=== PATIENT | female | born 1960 | race Caucasian/White ===

== ENCOUNTER 2020-05-21 23:43 | Emergency (ER) | payer OTHER, SELFPAY ==
[2020-05-21 23:57] VITALS: BP 134/86; PULSE 84; RESP 18; TEMP 36.6; O2SAT 92; BMI 31.1
[2020-05-22 00:32] LABS: Basophils % 0.3 %; Eosinophils % 0.3 %; Hematocrit 42.5 % (37.0-47.0); Hemoglobin 13.8 g/dL (11.5-15.3); Lymphocytes # 1.8 10^3/uL (0.8-4.8); Lymphocytes % 17.7 %; Mean Corpuscular HGB Conc 32.5 g/dL (30.0-36.0); Mean Corpuscular Hemoglobin 31.2 pg (28.0-34.0); Mean Corpuscular Volume 96.2 fL (81-99); Monocytes # 0.5 10^3/uL (0.2-0.9); Monocytes % 5.1 %; Neutrophils # 7.9 10^3/uL (1.8-7.7); Neutrophils % 76.5 %; Nucleated Red Blood Cells % 0 %; Platelet Count 348 10^3/cmm (130-400); Red Blood Count 4.42 10^6/uL (4.1-5.3); White Blood Count 10.3 10^3/uL (4.0-10.0)
[2020-05-22 00:57] LABS: Alanine Aminotransferase 18 U/L (0-33); Albumin Level 4.6 g/dL (3.5-5.2); Alkaline Phosphatase 72 IU/L (35-105); Anion Gap 18.2 (5-19); Aspartate Amino Transferase 22 U/L (0-32); Blood Urea Nitrogen 18 mg/dL (6-20); Calcium 9.7 mg/dL (8.5-10.5); Carbon Dioxide 22 mmol/L (22-29); Chloride 100 mmol/L (98-107); Globulin 3.5 g/dL (1.3-4.6); Glomerular Filtration Rate 73.9 mL/min (90-130); Glucose 123 mg/dL (65-115); Lipase 26 U/L (13-60); Osmolality Calculated 280 mOsm/kg (285-295); Potassium 4.2 mmol/L (3.5-5.1); Sodium 136 mmol/L (136-145); Total Bilirubin 0.3 mg/dL (0.15-1.2); Total Protein 8.1 g/dL (6.6-8.7)
--- NOTE | 2020-05-22 01:24 | W.ED.ABDPA2 ---
HPI - Abdominal Pain General: Chief Complaint: Abdominal Pain Stated Complaint: abd pain Time Seen by Provider: 05/22/20 01:24 Source: patient Mode of arrival: ambulatory Limitations: no limitations History of Present Illness: HPI narrative: Patient comes in today for complaints of abdominal pain after eating a hamburger and fries this afternoon. Patient states that the pain has improved some since arriving to the emergency department. Patient appears well. Patient appears in no acute distress. MD elicited complaint: abdominal pain Associated Symptoms: Reports nausea Review of Systems General: Reports: 10 or more systems reviewed and unremarkable except in HPI and below GI: Reports: abdominal pain and nausea Physical Exam Const: COMMON NORMALS: no acute distress and patient oriented x3 GENERAL APPEARANCE: cooperative HENMT: COMMON NORMALS: normocephalic and Normal external nose present HEAD & SCALP: normal to inspection and normocephalic NOSE: Normal external nose present MOUTH: Normal oral and palatal mucosa present THROAT: posterior oropharynx normal Eye: GENERAL EYE: appearance normal, both eyes and all related structures Neck/C-Spine: COMMON NORMALS: full ROM Lymph: LYMPHATIC: no lymphadenopathy noted Chest: COMMONS NORMALS: normal inspection of the chest Resp: COMMON NORMALS: normal respiratory effort EFFORT & INSPECTION: Yes able to speak in complete sentences Cardio: COMMON NORMALS: regular rate and regular rhythm RATE: regular rate RHYTHM: regular rhythm GI: COMMON NORMALS: Soft to palpation PALPATION: Yes Soft to palpation and Yes Tenderness to palpation present (GI) Details: RUQ : COMMON NORMALS: Yes no CVA tenderness BLADDER/KIDNEY EXAM: Yes no CVA tenderness Back/Pelvis: COMMON NORMALS: no CVA tenderness and thoracic and lumbar spine normal to inspection Extremity: COMMON NORMALS: normal to inspection Neuro: COMMON NORMALS: patient oriented x3 and moves all extremities Psych: COMMON NORMALS: mental status grossly normal and cooperative Skin: COMMON NORMALS: no rashes or lesions noted GENERAL SKIN EXAM: no rashes or lesions noted Course Vital Signs: Vital signs: Vital Signs Temperature 97.9 F 05/21/20 23:57 Pulse Rate 84 05/22/20 04:04 Respiratory Rate 17 05/22/20 04:04 Blood Pressure 135/77 05/22/20 04:04 Pulse Oximetry 97 05/22/20 04:04 MDM - Abdominal Pain MDM Narrative: Medical decision making narrative: Patient comes in with some severe pain to the abdomen that started after she ate. Patient appears well. Exam notes abdominal tenderness to palpation in the midepigastric to right quadrant. Vital signs were normal. No fever was noted. Differential diagnosis includes cholecystitis, gastritis, gastroenteritis, pancreatitis, appendicitis. Laboratory values noted a white count of 10,000, blood glucose of 123, urinalysis that was normal. CT scan of the abdomen pelvis noted epiploic appendagitis and enteritis. Reviewed exam with patient recommendations for treatment with pain control and fluids. Recommend light diet and follow-up with primary care in 1 week for recheck. Patient reports understanding with need for follow-up as needed. Lab Data: Labs: Lab Results 05/22/20 05/22/20 05/22/20 Range/Units 00:16 00:16 02:40 WBC 10.3 H (4.0-10.0) 10^3/ uL RBC 4.42 (4.1-5.3) 10^6/u L Hgb 13.8 (11.5-15.3) g/dL Hct 42.5 (37.0-47.0) % MCV 96.2 (81-99) fL MCH 31.2 (28.0-34.0) pg MCHC 32.5 (30.0-36.0) g/dL RDW 12.0 L (12.1-15.1) % Plt Count 348 (130-400) 10^3/c mm MPV 9.0 (7.4-10.4) fL Neut % (Auto) 76.5 % Lymph % (Auto) 17.7 % [place] % (Auto) 5.1 % Eos % (Auto) 0.3 % Baso % (Auto) 0.3 % Neut # (Auto) 7.9 H (1.8-7.7) 10^3/u L Lymph # (Auto) 1.8 (0.8-4.8) 10^3/u L [place] # (Auto) 0.5 (0.2-0.9) 10^3/u L Eos # (Auto) 0.0 (0.0-0.8) 10^3/u L Baso # (Auto) 0.0 (0.0-0.1) 10^3/u L Nucleated RBC % (a uto) 0 % Nucleated RBCs # 0.0 /100WBC Sodium 136 (136-145) mmol/L Potassium 4.2 (3.5-5.1) mmol/L Chloride 100 (98-107) mmol/L Carbon Dioxide 22 (22-29) mmol/L Anion Gap 18.2 (5-19) BUN 18 (6-20) mg/dL Creatinine 0.8 (0.5-0.9) mg/dL GFR Calculation 73.9 L (90-130) mL/min Glucose 123 H (65-115) mg/dL Calculated Osmolal ity 280 L (285-295) mOsm/k g Calcium 9.7 (8.5-10.5) mg/dL Total Bilirubin 0.3 (0.15-1.2) mg/dL AST 22 (0-32) U/L ALT 18 (0-33) U/L Alkaline Phosphata se 72 (35-105) IU/L Total Protein 8.1 (6.6-8.7) g/dL Albumin 4.6 (3.5-5.2) g/dL Globulin 3.5 (1.3-4.6) g/dL Lipase 26 (13-60) U/L Urine Color Yellow (Yellow) Urine Appearance Clear (CLEAR) Urine pH 5 (5-7) Ur Specific Gravit y 1.025 (1.005-1.030) Urine Protein Neg (Negative) Urine Glucose (UA) Norm (Normal) Urine Ketones Negative (Negative) Urine Blood Neg (Negative) Urine Nitrate Negative (Negative) Urine Bilirubin Neg (NEGATIVE) Urine Urobilinogen Norm (Negative) mg/dL Ur Leukocyte [place] ase Trace H (Negative) Urine RBC Rare (0-2) /hpf Urine WBC Rare (0-5) /hpf Ur Squamous Epith Cells 0-4 H (0-5) Amorphous Sediment Not Reportable Urine Bacteria Trace (NONE) Urine Mucus 2+ Discharge Plan Discharge Patient Disposition: Home, Self-Care Clinical Impression: Epiploic appendagitis, Enteritis Abdominal pain Qualifiers: Abdominal location: unspecified location Qualified Code(s): R10.9 - Unspecified abdominal pain Condition: Stable Prescriptions: New hydrocodone-acetaminophen 5-325 mg tablet 1 tab PO Q6H PRN (Reason: pain, severe) Qty: 7 RF: 0 omeprazole 40 mg capsule,delayed release(DR/EC) 40 mg PO DAILY 30 Days Qty: 30 RF: 0 Discharge Orders: Discharge Order (Routine); Ordered 05/22/20 Ordered By: Jorge Jackson Referrals: Karly Bradley FNP [Primary Care Provider] - Discharge Diet: Advance as tolerated Discharge Activity: Increase activity as tolerated Patient Instructions: Cholecystitis (ED), Abdominal Pain (ED) Activity Restrictions/Additional Instructions: Drink plenty of fluids. Eat a light diet for the next couple days. Activity as tolerated. Return to the ER for high fever, worsening symptoms, or blood in stool or vomit. Follow-up with primary care as needed otherwise. 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
--- NOTE | 2020-05-22 01:33 | CTR_ITS ---
PROCEDURE INFORMATION: Exam: CT Abdomen And Pelvis With Contrast Exam date and time: 05/22/2020 2:06 AM Age: 59 years old Clinical indication: Abdominal pain; Generalized; Prior surgery; Surgery type: Btl; Additional info: Abd pain TECHNIQUE: Imaging protocol: Computed tomography of the abdomen and pelvis with intravenous contrast. Radiation optimization: All CT scans at this facility use at least one of these dose optimization techniques: automated exposure control; mA and/or kV adjustment per patient size (includes targeted exams where dose is matched to clinical indication); or iterative reconstruction. Contrast material: OMNI 300; Contrast volume: 95 ml; Contrast route: INTRAVENOUS (IV); COMPARISON: [facility] Transvaginal 03/19/2019 3:03 PM RADIATION DOSE METRICS: Total DLP (mGy-cm): 1110 FINDINGS: Lungs: There is subsegmental atelectasis in the lung bases. Liver: The liver is normal. Gallbladder and bile ducts: The gallbladder is normal. There is no biliary dilation. Pancreas: The pancreas is unremarkable. Spleen: The spleen is unremarkable. Adrenals: The adrenal glands are unremarkable. Kidneys and ureters: The kidneys are unremarkable. No hydronephrosis or stones. No ureteral dilation. Stomach and bowel: The stomach is unremarkable. The proximal small bowel is unremarkable. there is fluid filling and mucosal hyperenhancement of nondilated distal small bowel loops in the right lower quadrant. There is mild associated interloop edema in the mesentery. There is focal edema with central fat attenuation along the sigmoid colon (see axial series 2, image 70). There is mild sigmoid colonic diverticulosis without evidence of diverticulitis. Appendix: The appendix is not definitively identified, although there are no secondary signs of appendicitis. Intraperitoneal space: Small volume pelvic free fluid. Vasculature: There is mild aortic atherosclerotic disease. The portal, splenic and superior mesenteric veins are patent. Lymph nodes: There is no lymphadenopathy in the retroperitoneum, mesentery, pelvis or inguinal regions. Bladder: The urinary bladder is unremarkable. Reproductive: The uterus is unremarkable. There is no adnexal mass or large cyst. Bones/joints: There is mild degenerative disease in the lumbar spine. The pelvis and hips are intact. Soft tissues: The abdominal wall is intact. CT/CT abdomen pelvis w con* [id number] IMPRESSION: 1. Probable enteritis involving the distal small bowel. No sign of obstruction. 2. Possible epiploic appendagitis of the sigmoid. 3. Small volume pelvic free fluid is likely physiologic. Radiation Dose CTDIVOL = (mGy): DLP = 1110 (mGy-cm)
[2020-05-22 02:11] VITALS: BP 112/83; PULSE 75; RESP 16; O2SAT 97
[2020-05-22] MEDS: pantoprazole 40 mg SDV IVP (02:18)
[2020-05-22 02:40] VITALS: BP 116/72; PULSE 70; RESP 16; O2SAT 96
[2020-05-22] MEDS: iohexol 300 mg/mL 100 mL Btl IV (02:49)
[2020-05-22 03:30] LABS: Add Urine Microscopic? YES; Bilirubin Urine Neg (NEGATIVE); Blood Urine Neg (Negative); Glucose Urine UA Norm (Normal); Ketones Urine Negative (Negative); Leukocyte Esterase Urine Trace (Negative); Nitrate Urine Negative (Negative); Protein Urine Neg (Negative); Specific Gravity, Urine 1.025 (1.005-1.030); Urine Appearance Clear (CLEAR); Urine Color Yellow (Yellow); Urobilinogen Urine Norm (Negative); pH Urine 5 (5-7)
[2020-05-22 03:35] LABS: Add Urine Culture? No; Bacteria Urine TRACE; Mucus Urine 2+; RBC Urine RARE /hpf (0-2); Squamous Epithelial Cell Urine 0-4 (0-5); WBC Urine RARE /hpf (0-5)
[2020-05-22 04:04] VITALS: BP 135/77; PULSE 84; RESP 17; O2SAT 97
[2020-05-22 04:36] VITALS: BP 119/78; PULSE 82; RESP 16; O2SAT 96
[2020-05-22 04:42] VITALS: BP 133/85; PULSE 81; RESP 16; O2SAT 97
== END 2020-05-22 04:45 | disposition home or self-care (01) ==
PROVIDERS: Emergency Medicine; Emergency Provider Nurse Practitioner Family; PCP Nurse Practitioner Family
DX: K63.89 Other specified diseases of intestine (principal); K52.9 Noninfective gastroenteritis and colitis, unspecified
CPT/HCPCS: 12345; 74177; 80053; 81001; 81003; 83690; 85025; 96374; 96375; 99283; C9113; Q9967

== ENCOUNTER 2020-07-17 06:52 | Outpatient (CLI) | payer OTHER, SELFPAY ==
--- NOTE | 2020-07-17 07:03 | NM_ITS ---
WS: [id number] NUCLEAR MEDICINE HIDA SCAN CLINICAL INFORMATION: RUQ PAIN TECHNIQUE: Following intravenous administration of 7.9 mCi of technetium 99m mebrofenin, images of th e abdomen were obtained over the course of 60 minutes. Next, gallbladder ejection fraction was determ ined by obtaining preprandial and one-hour postprandial images of the gallbladder following oral hiram stion of Ensure. COMPARISON: None. FINDINGS: Normal hepatic uptake at 5 minutes. Gallbladder is visualized by 20 minutes. Normal common bile duct. No evidence of acute cholecystitis. No evidence of choledocholithiasis. Gallbladder ejection fraction 85% within normal limits. NM/NM hepatobiliary w phar* [id number] IMPRESSION: 1. No evidence of acute or chronic cholecystitis. 2. Gallbladder ejection fraction 85% within normal limits.
== END 2020-07-17 06:53 | disposition home or self-care (01) ==
PROVIDERS: PCP Nurse Practitioner Family; Visit Provider Nurse Practitioner Family
DX: R10.11 Right upper quadrant pain (principal)
CPT/HCPCS: 78227; A9537

== ENCOUNTER → 2021-06-25 15:49 | Outpatient (BNVA) | payer OTHER, SELFPAY | PROVIDERS: PCP Nurse Practitioner Family; Visit Provider Nurse Practitioner Family | DX: Z20.822 Contact with and (suspected) exposure to COVID-19 (principal) | CPT/HCPCS: 87635 ==

== ENCOUNTER 2021-08-20 07:09 | Day surgery (SDC) | payer OTHER, SELFPAY ==
[2021-08-16 13:07] VITALS: BMI 28.5
--- NOTE | 2021-08-20 07:25 | ANES.PREANE2 ---
Pre-Anesthetic Assessment Pre-Anesthetic Assessment: Height/Weight: Height 1.57 m Weight 70.76 kg Preop Diagnosis: screening Proposed Procedure: Operation Date: 08/20/21 08:45 Proposed Procedures p Colonoscopy Z12.11 Z01.818(Not Applicable) - Rj Ambriz MD Familial anesthetic complications: none Was Beta June taken within 24 hours: N/A Was Clonidine taken within 24 hours: N/A Last intake: > 8 hrs Social: Social History: Tobacco and No alcohol Exam: Pre-Anes Outpt Exam: alert, oriented x 3, clear to auscultation bilaterally and regular rate & rhythm Airway: Cervical ROM: WNL MP: 2 Dentition: Chipped CV/HEM: CV/HEM: HTN Anesthetic Plan: ASA status: 2 Anesthesia: MAC Risk of > 500 ml blood loss (7ml/kg in children): No PFSH Anesthesia PFSH: Social History (Updated 06/25/21 @ 14:59 by Helga Amezquita NP) Smoking and tobacco status: current every day smoker cigarettes Alcohol intake: never Data Anesthesia Cardiac Studies: No Data to Display
[2021-08-20 07:49] VITALS: BP 127/57; PULSE 55; RESP 18; TEMP 36.3; O2SAT 97
[2021-08-20] MEDS: sodium chloride 0.9% 1,000 ML 30 ML IV (07:59)
--- NOTE | 2021-08-20 09:13 | P.HP_ITS ---
Providers/Chief Complaint Primary Care Provider: RICHARD Spain Chief Complaint: colonoscopy History of Present Illness Letitia Gaspar is a 61 year old female Review of Systems General: Reports: 10 or more systems reviewed and unremarkable except in HPI and below Const: Denies: fever(s) Card: Denies: chest pain or irregular heart rhythm Resp: Denies: dyspnea Medications/Allergies Home Medications Medication Instructions Recorded Confirmed Last Taken Type lisinopril 5 mg tablet 5 mg PO DAILY 06/25/21 08/20/21 08/19/21 History Allergies Allergy/AdvReac Type Severity Reaction Status Date / Time codeine Allergy ADR-Nausea Verified 06/25/21 14:59 PFSH PFSH: Social History Smoking and tobacco status: current every day smoker cigarettes Alcohol intake: never Vital Signs Vitals Signs: Last Vital Signs Temp 97.3 F L 08/20/21 07:49 Pulse 55 L 08/20/21 07:49 Resp 18 08/20/21 07:49 BP 127/57 08/20/21 07:49 Pulse Ox 97 08/20/21 07:49 Physical Exam Const: COMMON NORMALS: no acute distress and patient oriented x3 GENERAL APPEARANCE: cooperative, comfortable and well developed HENMT: COMMON NORMALS: normocephalic and moist oral mucous membranes HEAD & SCALP: normocephalic Chest: COMMONS NORMALS: normal inspection of the chest Resp: COMMON NORMALS: normal respiratory effort and clear to auscultation bilaterally AUSCULTATION: clear to auscultation bilaterally Cardio: COMMON NORMALS: regular rate, regular rhythm, No gallops present (Cardio), No murmurs present (Cardio) and No rub (Cardio) RATE: regular rate RHYTHM: regular rhythm Extremity: COMMON NORMALS: normal to inspection Neuro: COMMON NORMALS: patient oriented x3 and no focal motor deficits Skin: COMMON NORMALS: no rashes or lesions noted GENERAL SKIN EXAM: no rashes or lesions noted A&P Assessment and plan (1) Encounter for screening colonoscopy: Proceed with colonoscopy as scheduled. 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
[2021-08-20 09:45] VITALS: BP 99/53; PULSE 66; RESP 18; TEMP 36.1; O2SAT 94
[2021-08-20 09:55] VITALS: BP 96/50; PULSE 63; RESP 18; O2SAT 98
--- NOTE | 2021-08-20 12:21 | ANE.PACU2 ---
Inpatient post-anesthesia follow up: Airway intact: Yes Vital signs: Temperature 97.0 F Pulse Rate 63 Respiratory Rate 18 Blood Pressure 96/50 Pulse Oximetry 98 Oxygen Delivery Me thod Room Air Oxygen Flow Rate 3 Fraction of Inspir ed Oxygen Hydration adequate: Yes Nausea and vomiting: No Pain level: 1 Mental status: Baseline
== END 2021-08-20 10:11 | disposition home or self-care (01) ==
PROVIDERS: PCP Nurse Practitioner Family; Visit Provider Family Medicine
PROC: 0DJD8ZZ Inspection of Lower Intestinal Tract, Via Natural or Artificial Opening Endoscopic (ICD-10-PCS; CPT 45378; principal; 2021-08-20 08:45)
DX: Z12.11 Encounter for screening for malignant neoplasm of colon (principal); F17.210 Nicotine dependence, cigarettes, uncomplicated; I10 Essential (primary) hypertension
CPT/HCPCS: 12345; 45378; 96360; 96361; J2704; J7030

== ENCOUNTER → 2023-11-06 09:43 | Outpatient (BNVA) | payer OTHER, SELFPAY | PROVIDERS: Visit Provider Nurse Practitioner Family | DX: R50.9 Fever, unspecified (principal); H66.002 Acute suppurative otitis media without spontaneous rupture of ear drum, left ear; U07.1 COVID-19 | CPT/HCPCS: 87400; 87426 ==

== ENCOUNTER 2023-12-05 07:23 | Emergency (ER) | payer SELFPAY ==
[2023-12-05 07:35] VITALS: BP 181/94; PULSE 84; RESP 18; TEMP 36.8; O2SAT 95; BMI 32.9
--- NOTE | 2023-12-05 07:42 | ECG_ITS ---
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 Measurements Intervals [place] Rate: 57 P: 33 AL: 129 QRS: 40 QRSD: 73 T: 23 QT: 402 QTc: 393 Interpretive Statements SINUS BRADYCARDIA LOW QRS VOLTAGE IN PRECORDIAL LEADS [QRS DEFLECTION < 1.0 mV IN CHEST LEADS] No previous ECG available for comparison Electronically Signed On 12-05-2023 10:10:49 DIAMOND MERCHANT by Bruce Shabazz M.D. [email or web address]
--- NOTE | 2023-12-05 07:43 | ED_ITS ---
HPI - Dizziness 2 General: Chief Complaint: Dizziness Stated Complaint: dizziness Time Seen by Provider: 12/05/23 07:41 Source: patient Mode of arrival: ambulatory History of Present Illness: HPI Narrative: 63-year-old female who presents to the mergency room with dizziness. This morning when she woke up she had dizziness triggered by head movement while she was still in bed when she is remaining still for period of time it resolved. When she got up and began moving around it recurred. It improved again and while I was discussing her history with her at the bedside it recurred again. She denies any chest pain or shortness of breath no head injury. No other deficits noted. MD elicited complaint: dizziness Onset (ago): minute(s) Timing: sudden onset Severity: moderate Description: room spinning Context: change in body position Exacerbating factors: movement/ambulation Relieving factors: remaining still Associated symptoms: Denies change in hearing, chest pain, chills, cough, diaphoresis, ear discharge, ear pressure, fevers/chills, headache(s), malaise, nausea, nasal congestion, palpitations, rash, short of breath, syncope, tinnitus, vomiting or weakness Associated neuro symptoms: Deny confusion, difficulty speaking, dysphagia, diplopia, extremity weakness, facial numbness, facial weakness, gait changes, numbness in extremities or visual changes Review of Systems 2 Const: Denies: fever(s), chills, malaise or diaphoresis ENMT: Denies: ear discharge, change in hearing, tinnitus or nasal congestion Card: Denies: chest pain, palpitations or syncope Resp: Denies: dyspnea GI: Denies: abdominal pain, nausea, vomiting or dysphagia : Denies: dysuria, urinary frequency or urinary urgency Musc: Denies: neck pain or back pain Skin/Breast: Denies: rash Neuro: Denies: headache(s), numbness in extremities or confusion PFSH ED 2 PFSH: Social History Smoking and tobacco/nicotine status: current every day tobacco/nicotine user cigarettes Alcohol intake: never Substance/Drug Use: never Physical Exam 2 Const: COMMON NORMALS: patient oriented x3, no limitations, healthy appearing, alert and well nourished GENERAL APPEARANCE: cooperative and comfortable O RIENTATION/CONSCIOUSNESS: Yes awake, Yes oriented to person, Yes oriented to place and Yes oriented to time HENMT: COMMON NORMALS: normocephalic, atraumatic and hearing grossly normal bilaterally HEAD & SCALP: normocephalic and atraumatic Resp: COMMON NORMALS: normal respiratory effort, No retractions, No use of accessory muscles and clear to auscultation bilaterally AUSCULTATION: clear to auscultation bilaterally Cardio: COMMON NORMALS: regular rate, regular rhythm and No murmurs present (Cardio) RATE: regular rate RHYTHM: regular rhythm GI: COMMON NORMALS: Soft to palpation and No hepatosplenomegaly present A USCULTATION: Yes normoactive bowel sounds PALPATION: Yes Soft to palpation, No Tenderness to palpation present (GI), No Guarding due to palpation present (GI) and Yes No hepatosplenomegaly present Extremity: COMMON NORMALS: normal to inspection, capillary refill normal, no clubbing, cyanosis or edema, no calf tenderness and no pedal edema Neuro: COMMON NORMALS: patient oriented x3 SENSORIUM/ORIENTATION: Yes alert, Yes oriented to person, Yes oriented to place and Yes oriented to time OTHER: Normal facial symmetry equal movements in all extremities bilaterally no ataxia no aphasia no dysarthria. No focal logic deficits are noted. Skin: COMMON NORMALS: no rashes or lesions noted GENERAL SKIN EXAM: no rashes or lesions noted Course 2 Vital Signs: Vital signs: Vital Signs Temperature 98.2 F 12/05/23 07:35 Pulse Rate 68 12/05/23 08:30 Respiratory Rate 16 12/05/23 08:30 Blood Pressure 126/75 12/05/23 08:30 Pulse Oximetry 98 12/05/23 08:30 Oxygen Delivery Me thod Room Air 12/05/23 07:35 MDM - Dizziness Medical Decision Making Labs and imaging reviewed. EKG does not show any acute ST changes initial troponin negative. Patient has reproducible symptoms with head movement even has a couple of recurrences while redoing her history and physical. Orthostatics are normal. No focal neurologic deficits suggestive of acute CVA or TIA discharge patient home meclizine to use as needed follow-up as needed Differential Diagnosis Likely benign paroxysmal positional vertigo, orthostatic hypotension and cerebrovascular accident Medical Records I reviewed the patient's medical records. Lab Data I reviewed the patient's lab results. 12/05/23 07:49 12/05/23 07:49 Laboratory Results WBC 5.97 10^3/uL (3.29-11.43) 12/05/23 07:49 RBC 4.05 10^6/uL (3.85-5.65) 12/05/23 07:49 Hgb 12.40 g/dL (11.27-16.99) 12/05/23 07:49 Hct 37.8 % (36-47) 12/05/23 07:49 MCV 93.3 fl (85-98) 12/05/23 07:49 MCH 30.6 pg (27-33) 12/05/23 07:49 MCHC 32.8 g/dL (30-55) 12/05/23 07:49 RDW 12.3 % (12.1-15.1) 12/05/23 07:49 Plt Count 324 10^3/cmm (157-399) 12/05/23 07:49 MPV 8.8 fL (7.4-10.4) 12/05/23 07:49 Neut % (Auto) 64.5 % 12/05/23 07:49 Lymph % (Auto) 28.0 % 12/05/23 07:49 [place] % (Auto) 6.2 % 12/05/23 07:49 Eos % (Auto) 0.8 % 12/05/23 07:49 Baso % (Auto) 0.3 % 12/05/23 07:49 Neut # (Auto) 3.85 10^3/uL (1.8-7.7) 12/05/23 07:49 Lymph # (Auto) 1.7 10^3/uL (0.8-4.8) 12/05/23 07:49 [place] # (Auto) 0.4 10^3/uL (0.2-0.9) 12/05/23 07:49 Eos # (Auto) 0.1 10^3/uL (0.0-0.8) 12/05/23 07:49 Baso # (Auto) 0.0 10^3/uL (0.0-0.1) 12/05/23 07:49 Nucleated RBC % (auto) 0 % 12/05/23 07:49 Nucleated RBCs # 0.0 /100WBC 12/05/23 07:49 Sodium 137 mmol/L (136-145) 12/05/23 07:49 Potassium 3.8 mmol/L (3.5-5.1) 12/05/23 07:49 Chloride 107 mmol/L (98-107) 12/05/23 07:49 Carbon Dioxide 18 mmol/L (22-29) L 12/05/23 07:49 Anion Gap 15.8 (5-19) 12/05/23 07:49 BUN 18 mg/dL (8-23) 12/05/23 07:49 Creatinine 0.7 mg/dL (0.5-0.9) 12/05/23 07:49 GFR Calculation 85.1 mL/min (90-130) L 12/05/23 07:49 Glucose 123 mg/dL (65-115) H 12/05/23 07:49 Calculated Osmolality 287 mOsm/kg (285-295) 12/05/23 07:49 Calcium 9.0 mg/dL (8.5-10.5) 12/05/23 07:49 Total Bilirubin 0.2 mg/dL (0.15-1.2) 12/05/23 07:49 AST 20 U/L (0-32) 12/05/23 07:49 ALT 17 U/L (0-33) 12/05/23 07:49 Alkaline Phosphatase 63 U/L (35-105) 12/05/23 07:49 Troponin T Baseline < 6 ng/L (0-10) 12/05/23 07:49 Total Protein 7.3 g/dL (6.6-8.7) 12/05/23 07:49 Albumin 3.9 g/dL (3.5-5.2) 12/05/23 07:49 Globulin 3.4 g/dL (1.3-4.6) 12/05/23 07:49 Urine Color Straw (Yellow) 12/05/23 08:37 Urine Appearance Clear (CLEAR) 12/05/23 08:37 Urine pH 5 (5-7) 12/05/23 08:37 Ur Specific [place] 1.005 (1.005-1.030) 12/05/23 08:37 Urine Protein Neg (Negative) 12/05/23 08:37 Urine Glucose (UA) Norm (Normal) 12/05/23 08:37 Urine Ketones Negative (Negative) 12/05/23 08:37 Urine Blood Neg (Negative) 12/05/23 08:37 Urine Nitrate Negative (Negative) 12/05/23 08:37 Urine Bilirubin Neg (Negative) 12/05/23 08:37 Urine Urobilinogen Norm mg/dL (Negative) 12/05/23 08:37 Ur Leukocyte Esterase Negative (Negative) 12/05/23 08:37 No radiology studies performed this visit Discharge Plan Discharge Patient Disposition: Home Clinical Impression: Benign paroxysmal positional vertigo Condition: Stable Prescriptions: New meclizine 25 mg tablet 25 mg PO QID PRN (Reason: dizziness) Qty: 20 0RF No Action Vitamin B-12 500 mcg Tablet 500 mcg PO QAM cholecalciferol (vitamin D3) [Vitamin D3] 25 mcg (1,000 unit) Tablet 25 mcg PO BEDTIME magnesium oxide 400 mg magnesium Tablet 400 mg PO BEDTIME Elderberry-Vit C-Zinc Gummies 1 tab PO DAILY PRN (Reason: unknown) Discharge Orders: Discharge ED (Routine); Ordered 12/05/23 Ordered By: Suraj Harris Discharge Diet: Usual diet Discharge Activity: Increase activity as tolerated Patient Instructions: Benign Paroxysmal Positional Vertigo (ED), Opioid Safety, Pain Management Activity Restrictions/Additional Instructions: Thank you for choosing [facility] for your healthcare needs today. Please realize this is an emergency room and that we are providing you with a medical screening exam and this may not be complete and all inclusive of all the testing and or work up that you may need to determine your ailment or severity of your illness. It is very important that you follow up as instructed or that you return to the Emergency Department should you have concerns or if your condition changes or worsens in any way. 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
[2023-12-05 07:58] LABS: Basophils % 0.3 %; Eosinophils # 0.1 10^3/uL (0.0-0.8); Eosinophils % 0.8 %; Hematocrit 37.8 % (36-47); Lymphocytes # 1.7 10^3/uL (0.8-4.8); Mean Corpuscular HGB Conc 32.8 g/dL (30-55); Mean Corpuscular Hemoglobin 30.6 pg (27-33); Mean Corpuscular Volume 93.3 fl (85-98); Mean Platelet Volume 8.8 fL (7.4-10.4); Monocytes # 0.4 10^3/uL (0.2-0.9); Monocytes % 6.2 %; Neutrophils # 3.85 10^3/uL (1.8-7.7); Neutrophils % 64.5 %; Nucleated Red Blood Cells % 0 %; Platelet Count 324 10^3/cmm (157-399); Red Blood Count 4.05 10^6/uL (3.85-5.65); Red Cell Distribution Width 12.3 % (12.1-15.1); White Blood Count 5.97 10^3/uL (3.29-11.43)
[2023-12-05] MEDS: meclizine 25 mg tablet 50 MG PO (08:00)
[2023-12-05 08:03] VITALS: BP 125/72; PULSE 64; RESP 16; O2SAT 98
[2023-12-05 08:11] VITALS: BP 125/72; BP 136/89; BP 137/69; PULSE 58; PULSE 64; PULSE 72
[2023-12-05 08:20] LABS: Alanine Aminotransferase 17 U/L (0-33); Albumin Level 3.9 g/dL (3.5-5.2); Alkaline Phosphatase 63 U/L (35-105); Anion Gap 15.8 (5-19); Aspartate Amino Transferase 20 U/L (0-32); Blood Urea Nitrogen 18 mg/dL (8-23); Carbon Dioxide 18 mmol/L (22-29); Chloride 107 mmol/L (98-107); Globulin 3.4 g/dL (1.3-4.6); Glomerular Filtration Rate 85.1 mL/min (90-130); Glucose 123 mg/dL (65-115); Osmolality Calculated 287 mOsm/kg (285-295); Potassium 3.8 mmol/L (3.5-5.1); Sodium 137 mmol/L (136-145); Total Bilirubin 0.2 mg/dL (0.15-1.2); Total Protein 7.3 g/dL (6.6-8.7)
[2023-12-05 08:21] LABS: Troponin(5th) Baseline < 6 ng/L (0-10)
[2023-12-05 08:30] VITALS: BP 126/75; PULSE 68; RESP 16; O2SAT 98
[2023-12-05 08:49] LABS: Add Urine Microscopic? NO; Charge for UA Resulting for Rev
[2023-12-05 09:25] LABS: Specific Gravity, Urine 1.005 (1.005-1.030); Urine Appearance Clear (CLEAR); Urine Color Straw (Yellow); pH Urine 5 (5-7)
[2023-12-05 09:26] LABS: Bilirubin Urine Neg (Negative); Blood Urine Neg (Negative); Glucose Urine UA Norm (Normal); Ketones Urine Negative (Negative); Leukocyte Esterase Urine Negative (Negative); Nitrate Urine Negative (Negative); Protein Urine Neg (Negative); Urobilinogen Urine Norm (Negative)
== END 2023-12-05 09:35 | disposition home or self-care (01) ==
PROVIDERS: Emergency Provider Family Medicine
DX: H81.10 Benign paroxysmal vertigo, unspecified ear (principal)
CPT/HCPCS: 36415; 80053; 81003; 84484; 85025; 93005; 99285; J8597

== ENCOUNTER → 2024-05-28 14:10 | Outpatient (BNVA) | payer OTHER, SELFPAY | PROVIDERS: PCP Nurse Practitioner Family; Visit Provider Student in an Organized Health Care Education/Training Program | DX: M25.511 Pain in right shoulder (principal); M75.41 Impingement syndrome of right shoulder | CPT/HCPCS: 73030 ==

== ENCOUNTER 2025-03-25 09:15 | Outpatient (CLI) | payer OTHER, SELFPAY ==
--- NOTE | 2025-03-25 09:19 | MM_ITS ---
WS: [id number] BILATERAL 3D TOMOSYNTHESIS DIGITAL SCREENING MAMMOGRAPHY WITH CAD CLINICAL INFORMATION: SCREENING HISTORY: Screening mammogram. No current complaints. COMPARISON: 2019 TECHNIQUE: Bilateral CC and MLO views. FINDINGS: Scattered fibroglandular densities bilaterally. No suspicious focal mass, asymmetry, calcifications, or architectural distortion. No evidence of malignancy. MM/MM scr BI tomosynthesis [id number] IMPRESSION: DENSITY: There are scattered areas of fibroglandular density. BI-RADS: 2 - Benign. FOLLOW UP: 1 Year Follow-up Recommend return to annual screening mammography.
== END 2025-03-25 09:16 | disposition home or self-care (01) ==
PROVIDERS: PCP Family Medicine; Visit Provider Family Medicine
DX: Z12.31 Encounter for screening mammogram for malignant neoplasm of breast (principal); R92.323 Mammographic fibroglandular density, bilateral breasts
CPT/HCPCS: 77063; 77067

== ENCOUNTER 2025-04-08 08:17 | Outpatient (CLI) | payer OTHER, SELFPAY ==
--- NOTE | 2025-04-08 08:22 | CT_ITS ---
WS: [id number] LDCT LUNG CANCER SCREENING TECHNIQUE: Noncontrast CT of the chest with coronal and sagittal reformatted images. CLINICAL INFORMATION: HX OF TOBACCO USE COMPARISON: None. DLP: 76.62 mGy.cm DIvol: Mean CTDIvol: 1.80 (mGy) All CT scans at [facility] use at least one of these dose optimization techniques: automated exposure control; mA and/or kV adjustment per patient size (includes targeted exams where dose is matched to clinical indication); or iterative reconstruction. FINDINGS: RIGHT perifissural nodularity. Few tiny micronodules in the lung apices. Subsegmental atelectasis in the lung bases. Vascular calcification. Normal caliber thoracic aorta. No mediastinal or hilar lymphadenopathy. No axillary lymphadenopathy. Calcified RIGHT hilar lymph nodes. Adrenal glands are normal. Hepatomegaly partially visualized. Small esophageal hiatal hernia. Adrenal glands are normal. Mild thoracic curve. Mild thoracic kyphosis. Hypertrophic changes thoracic spine. CT/CT lung screening [id number] IMPRESSION: LUNG-RADS: 2-Benign Appearance or Behavior FOLLOW UP: 12 Month: Continue annual screening with LDCT
== END 2025-04-08 08:18 | disposition home or self-care (01) ==
PROVIDERS: PCP Family Medicine; Visit Provider Family Medicine
DX: Z12.2 Encounter for screening for malignant neoplasm of respiratory organs (principal); Z87.891 Personal history of nicotine dependence; R91.8 Other nonspecific abnormal finding of lung field; J98.11 Atelectasis; I70.90 Unspecified atherosclerosis; R59.0 Localized enlarged lymph nodes; R16.0 Hepatomegaly, not elsewhere classified; K44.9 Diaphragmatic hernia without obstruction or gangrene; M43.8X4 Other specified deforming dorsopathies, thoracic region; M40.294 Other kyphosis, thoracic region; M89.38 Hypertrophy of bone, other site
CPT/HCPCS: 71271